=== PATIENT | male | born 1930 | race Caucasian/White ===

== ENCOUNTER 2018-12-25 07:10 | Day surgery (SDC) | payer MEDICARE, BC ==
[2018-12-24 09:06] VITALS: BMI 18.2
[2018-12-25 07:28] LABS: #Eosinphils 0.4 thou/uL (0.0-0.7); #Lymphocytes 1.5 thou/uL (1.20-3.40); #Monocytes 0.6 thou/uL (0.11-0.59); #Neutrophils 5.5 thou/uL (1.40-6.50); %Basophils 0.5 % (0.0-1.0); %Eosinophils 5.2 % (0.0-10.0); %Neutrophils 68.3 % (42.0-75.0); Hemoglobin 11.7 g/dL (14.0-18.0); Mean Corpuscular HGB CONC 32.5 g/dL (32.0-36.0); Mean Platelet Volume 7.2 fL (7.4-10.4); Platelet Count 147 thou/uL (130-400); RBC Distribution Width 16.6 % (11.5-14.5); Red Blood Cell (RBC) Count 3.54 mill/uL (4.70-6.10)
[2018-12-25 07:35] LABS: INR-International Normal Ratio 1.2; PTT 32.6 SEC (22.9-36.1); Prothrombin Time 15.1 SEC (12.0-14.7)
[2018-12-25] MEDS ORDERED: Lidocaine 1% PF 5 ML VIAL ONE (09:09)
[2018-12-25] MEDS ORDERED: Sodium Bicarbonate 2.5 MEQ/5 ML VIAL ONE (09:09)
[2018-12-25] MEDS ORDERED: Midazolam HCl 2 mg/2 ml Vial ONE (09:10)
[2018-12-25] MEDS ORDERED: Fentanyl 100 MCG/2 ML VIAL ONE (09:10)
--- NOTE | 2018-12-25 13:41 | CT ---
CT-guided suprapubic catheter placement HISTORY: Urinary retention. FINDINGS: After explaining the procedure and answering all questions, approximately 550 cc sterile sa line was instilled into the urinary bladder via the indwelling Dent catheter. Sterile technique, buffered local anesthesia, CT guidance, and an anterior midline suprapubic approac h were used to carefully advance, via trocar technique, a 14 [place] urinary catheter. Retention balloon was inflated. Approximately 500 cc saline and urine were drained. Catheter was secured crematory operator ally with 0 silk suture and left draining to gravity. Patient tolerated the procedure well and was eventually dismissed in good condition. IMPRESSION: Technically successful suprapubic catheter placement.
== END 2018-12-25 11:10 | disposition home or self-care (01) ==
LOC: RAD 07:10
PROVIDERS: ATTEND Urology
DX: N40.0 Benign prostatic hyperplasia without lower urinary tract symptoms (principal); R33.8 Other retention of urine; F41.9 Anxiety disorder, unspecified; F32.9 Major depressive disorder, single episode, unspecified; D64.9 Anemia, unspecified; J45.909 Unspecified asthma, uncomplicated; E78.5 Hyperlipidemia, unspecified; K59.00 Constipation, unspecified; Z88.2 Allergy status to sulfonamides; Z88.8 Allergy status to other drugs, medicaments and biological substances; Z87.891 Personal history of nicotine dependence
CPT/HCPCS: 36415; 51102; 77002; 85025; 85610; 85730; J2001; J2250; J3010

== ENCOUNTER 2019-02-16 11:25 | Observation (INO) | payer MEDICARE, BC ==
[2019-02-16] MEDS ORDERED: ISOVUE-370 76%-LOCM 1 ML ONE (12:02)
--- NOTE | 2019-02-16 12:31 | RAD ---
Portable chest: HISTORY: Mental status change COMPARISON: none FINDINGS: Lung syed are clear. Heart and mediastinum appear unremarkable. Vascularity is normal. Visualized osseous structures unremarkable. IMPRESSION: No acute finding
--- NOTE | 2019-02-16 12:39 | CT ---
CT HEAD WITHOUT CONTRAST: Date: 02/16/19 Axial tomograms obtained without enhancement. INDICATION: Mental status change. FINDINGS: Mild cortical volume loss. Mild chronic ischemic white matter change. No evidence of mass, hemorrhage , or acute infarct. Sinuses are clear. IMPRESSION: No acute process. POS: JOSE
[2019-02-16 12:48] LABS: #Basophils 0.1 thou/uL (0.0-0.2); #Eosinphils 0.5 thou/uL (0.0-0.7); #Lymphocytes 2.1 thou/uL (1.20-3.40); #Monocytes 0.7 thou/uL (0.11-0.59); #Neutrophils 5.5 thou/uL (1.40-6.50); %Basophils 0.7 % (0.0-1.0); %Eosinophils 6.1 % (0.0-10.0); %Lymphocytes 23.9 % (21.0-51.0); %Monocytes 7.8 % (0.0-10.0); %Neutrophils 61.5 % (42.0-75.0); Hemoglobin 11.7 g/dL (14.0-18.0); Mean Corpuscular HGB CONC 32.5 g/dL (32.0-36.0); Mean Corpuscular Hemoglobin 32.4 pg (27.0-31.0); Mean Corpuscular Volume 99.9 fL (78.0-98.0); Mean Platelet Volume 7.4 fL (7.4-10.4); Platelet Count 144 thou/uL (130-400); RBC Distribution Width 16.9 % (11.5-14.5); Red Blood Cell (RBC) Count 3.59 mill/uL (4.70-6.10); White Blood Cell (WBC) Count 8.9 thou/uL (4.8-10.8)
[2019-02-16 13:02] LABS: Bilirubin Negative (Negative); Blood, Urine Negative (Negative); Glucose, Urine (Dipstick) Negative (Negative); Leukocyte Negative (Negative); Nitrite Negative (Negative); Protein, Urine (Dipstick) Negative (Neg-Trace); Urobilinogen 0.2 mg/dL (Less than 2)
[2019-02-16 13:05] LABS: ALT (SGPT) 16 U/L (8-55); AST (SGOT) 15 U/L (5-34); Albumin 3.5 g/dL (3.4-4.8); Alkaline Phosphatase 88 U/L (40-150); Anion Gap 11 mmol/L (10-20); BUN (Urea Nitrogen) 29 mg/dL (8.4-25.7); Bilirubin, Total 0.4 mg/dL (0.2-1.2); CK (CPK) 14 U/L (30-200); Calc. Creatinine Clearance 0 mL/min (70-130); Calcium 9.5 mg/dL (7.8-10.44); Carbon Dioxide 24 mmol/L (23-31); Chloride 111 mmol/L (98-107); Estimated GFR-MDRD 45; Globulin 2.5 g/dL (2.4-3.5); Glucose 87 mg/dL (83-110); Potassium 4.7 mmol/L (3.5-5.1); Sodium 141 mmol/L (136-145)
[2019-02-16 13:07] LABS: Clarity Clear (Clear); RBC/HPF 0-3 HPF (0-3); WBC/HPF 0-3 HPF (0-3)
--- NOTE | 2019-02-16 14:29 | CT ---
CTA of the chest and abdomen utilizing an aortic dissection protocol and 3-D reformatted imaging INDICATION: Back pain and known abdominal aortic aneurysm COMPARISON: None FINDINGS: Aorta: There is an infrarenal abdominal aortic aneurysm measuring 5.4 x 5.1 cm in its greatest mediol ateral and AP dimensions respectively. The aneurysm extends for approximately 9.3 cm to the level of the aortic bifurcation. The aneurysm originates 3.7 cm from the level of the lowest renal artery. There are bilateral renal artery stents. Celiac and SMA are patent. The RAYO originates from the infrarenal abdominal aortic aneurysmal sac and is occluded from its origin. There is reconstitution a t the mid level of the RAYO from collaterals. 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 There is ectasia of the right common iliac artery measuring 1.2 cm. Central pulmonary artery: No central pulmonary embolus demonstrated. Additional thorax findings: No focal consolidation, pleural effusion or pneumothorax is evident. Additional abdominal findings: No free fluid or enlarged lymph nodes are evident. The liver, pancreas , adrenal glands, spleen and kidneys appear within normal limits. The unopacified large and small bowel appear unremarkable. Osseous structures: There is scattered degenerative and osteoarthritic change present. There are slip box changer noa appearing compression abnormalities involving L2 and T11. IMPRESSION: 1. Infrarenal abdominal aortic aneurysm as above.
[2019-02-16] MEDS ORDERED: Acetaminophen 650 MG Suppository PR PRN (16:19)
[2019-02-16] MEDS ORDERED: Acetaminophen 325 MG TAB PO PRN (16:19)
[2019-02-16] MEDS ORDERED: Ondansetron ODT 4 MG TAB PO PRN (16:21)
[2019-02-16] MEDS ORDERED: Ondansetron PF 4 MG/2 ML Vial IVP PRN (16:21)
[2019-02-16 16:32] LABS: Troponin I 0.015 ng/mL (< 0.028)
--- NOTE | 2019-02-16 17:19 | HP ---
PRIMARY CARE PHYSICIAN: Dr. Andrews Church. CHIEF COMPLAINT: Weakness and right-sided facial droop. HISTORY OF PRESENT ILLNESS: Mr. Isabel is an 88-year-old man with a known history of CVAs, who had his last stroke approximately 8 years ago. The patient has been in his usual state of health until last week when he began to experience weakness. Today, he had 2 episodes in which he suddenly slumped to one side of his chair. First, the left side noted to have a left facial droop and then later in the day slumped to the right side with a right-sided facial droop. The patient was therefore brought in by his daughters for CVA/TIA rule out. He has had no complaints of pain. No fevers or chills. No chest pain or shortness of breath. The patient is known to have a history of abdominal aortic aneurysm, therefore underwent a CT dissection, which demonstrated the infrarenal abdominal aortic aneurysm measuring 5.4 x 5.1 cm extending 9.3 cm to the level of the aortic bifurcation. The aneurysm originates 3.7 cm from the level of the lowest renal artery. The patient also noted to have bilateral renal artery stents. The last time he underwent CT imaging to assess the size of the abdominal aortic aneurysm was at [facility] in [place], [place]. Family unsure what size it was at that time, but they were told it was below the threshold for surgical intervention. The patient's lifestyle coordinator is Dr. Lay. He was previously on statin, but taken off it due to improved lipids and no longer requiring it. He is not on a baby aspirin at home, but is on Plavix. The patient does not ambulate, but is able to sit up in a wheelchair and is communicative. He has had a good appetite in recent days. No decreased fluid intake. No changes with his stools such as diarrhea or constipation. No hematuria noted. The patient has a suprapubic catheter in place and there has been no evidence of infection or drainage from the insertion site. REVIEW OF SYSTEMS: All other review of systems are negative. PAST MEDICAL HISTORY: 1. History of CVA, last one 8 years ago. 2. Infrarenal abdominal aortic aneurysm. 3. COPD. 4. Enlarged prostate. PAST SURGICAL HISTORY: 1. Stents placed to both kidneys. 2. Hemorrhoid surgery. 3. Suprapubic catheter placement. SOCIAL HISTORY: The patient lives with his family. He is wheelchair bound. Former smoker, but quit more than 10 years ago. Denies any alcohol use or illicit drug use. PHYSICAL EXAMINATION: GENERAL: The patient appears well developed and in no acute distress. He appears frail. VITAL SIGNS: Temperature 97.5, pulse 74, respirations 16, O2 saturation 100% on room air, and blood pressure 155/78. HEENT: Normocephalic and atraumatic. Pupils are equal, round, and reactive to light. Extraocular movements intact. No nystagmus present. Oropharynx is clear. NECK: Supple. LUNGS: Clear to auscultation. CARDIAC: Regular rate and rhythm. ABDOMEN: Soft, nontender, and nondistended. Normoactive bowel sounds present. No guarding or rigidity. Suprapubic catheter in place without any erythema, discharge, or bleeding at insertion site. Dressing is dry and in place. EXTREMITIES: No lower leg swelling or edema. NEUROLOGIC: Alert and oriented x3. Speech, normal. Able to follow commands and answer questions. Facial movements normal. Sensation normal. No neuro deficits on exam. Unable to assess his gait as he is not ambulatory. LABORATORY DATA: White blood count 8.9, hemoglobin 11.7, hematocrit 35.9, and platelets 144. Sodium 141, potassium 4.7, BUN 29, creatinine 1.48, GFR 45, glucose 87, calcium 9.5, total bilirubin 0.4, AST 15, ALT 16, troponin negative, CK 14, and albumin 3.5. Urinalysis unremarkable. IMAGING DATA: 1. CT of the brain, no acute changes. Mild cortical volume loss and mild chronic ischemic white matter change. Sinuses clear. 2. Chest x-ray, no acute findings. 3. CT dissection as above showed an infrarenal abdominal aortic aneurysm. IMPRESSION AND PLAN: Mr. Isabel is an 88-year-old man, who is being referred for management of the following; 1. Rule out transient ischemic attack/cerebrovascular accident. The patient with 2 episodes of slumping to each side with apparent facial droop. Photos shown by his family, which showed an obvious right facial droop. He has undergone a CT of the head that is unremarkable. We will pick an MRI of the brain, echo, and carotid Dopplers. We will add a lipid panel with morning labs. The patient on Plavix at home and taken off statin previously, not due to reaction, but because he was told he no longer needed it. We will start him back on statin and continue his normal dose of Plavix. Consult placed to Neurology. 2. Abdominal aortic aneurysm. CT imaging shows measurements of 5.4 x 5.1 cm extending approximately 9.3 cm. Obtain outside records to compare for worsening and see if further consultation needed to Cardiovascular Surgery. 3. Acute kidney injury. Unclear if the patient has acute on chronic renal insufficiency, as we do not have previous renal function tests to compare to. We will give gentle hydration as this could be a potential cause for his weakness. 4. Gastrointestinal prophylaxis. 5. Deep venous thrombosis prophylaxis with mechanical sequential compression devices. 6. Code status, DNAR. His surrogate decision maker is his daughter, Meagan Castillo, who is his medical power of warhead maintenance specialist. 7. The patient's case will be discussed with attending for further recommendations. Job ID: [id number]
--- NOTE | 2019-02-16 20:13 | ULT ---
BILATERAL CAROTID DUPLEX ULTRASOUND: HISTORY: TIA, CVA TECHNIQUE: Grayscale, color-flow and spectral Doppler ultrasound imaging of the extracranial carotid artery syst ems was performed bilaterally. FINDINGS: Moderate plaque formation. The peak systolic velocity in the right ICA measures 125 cm/s. The peak systolic velocity in the left ICA measures 92 cm/s. Vertebral flow: antegrade, bilaterally. 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 No hemodynamically significant stenosis of left ICA.
[2019-02-16 20:41] LABS: Troponin I Less than 0.010 ng/mL (< 0.028)
[2019-02-16] MEDS ORDERED: Atorvastatin Calcium 40 MG TAB PO SCH (21:00)
[2019-02-16] MEDS: Sodium Chloride 0.9% 1,000 ML IV SCH (21:08)
[2019-02-16 21:16] VITALS: BMI 18.1
[2019-02-17] MEDS ORDERED: Lorazepam 0.5 MG TAB PO PRN (03:21)
[2019-02-17] MEDS: hydrALAZINE 20 MG/ML VIAL SLOW IVP PRN ×2 (04:41→08:50)
[2019-02-17 05:13] LABS: Anion Gap 5 mmol/L (10-20); BUN (Urea Nitrogen) 24 mg/dL (8.4-25.7); Calc. Creatinine Clearance 51 mL/min (70-130); Calcium 9.1 mg/dL (7.8-10.44); Carbon Dioxide 24 mmol/L (23-31); Cardiac Risk 6.7 (Less than 4.5); Chloride 113 mmol/L (98-107); Cholesterol 160 mg/dl (< 200 Desired); Estimated GFR-MDRD 58; Glucose 90 mg/dL (83-110); HDL Cholesterol 24 mg/dL (>60 Neg Risk); LDL Cholesterol, Calculated 116 mg/dL; Potassium 4.3 mmol/L (3.5-5.1); Sodium 138 mmol/L (136-145); Triglycerides 100 mg/dL (Less than 150)
[2019-02-17 05:29] LABS: #Eosinphils 0.6 thou/uL (0.0-0.7); #Lymphocytes 2.1 thou/uL (1.20-3.40); #Monocytes 0.6 thou/uL (0.11-0.59); #Neutrophils 3.1 thou/uL (1.40-6.50); %Basophils 0.3 % (0.0-1.0); %Eosinophils 8.8 % (0.0-10.0); %Lymphocytes 33.5 % (21.0-51.0); %Monocytes 8.6 % (0.0-10.0); %Neutrophils 48.7 % (42.0-75.0); Hemoglobin 10.5 g/dL (14.0-18.0); Mean Corpuscular Hemoglobin 31.7 pg (27.0-31.0); Mean Corpuscular Volume 99.2 fL (78.0-98.0); Mean Platelet Volume 6.8 fL (7.4-10.4); Platelet Count 115 thou/uL (130-400); Platelet Morphology Comment Appears Decreased; RBC Distribution Width 16.8 % (11.5-14.5); Red Blood Cell (RBC) Count 3.31 mill/uL (4.70-6.10); White Blood Cell (WBC) Count 6.4 thou/uL (4.8-10.8)
[2019-02-17] MEDS: Clopidogrel Bisulfate 75 MG TAB PO SCH (08:38)
[2019-02-17] MEDS ORDERED: Aspirin 81 mg Enteric Coated Tablet PO SCH (09:00)
--- NOTE | 2019-02-17 09:47 | MRI ---
Brain MRI without contrast: 02/17/2019 COMPARISON: None HISTORY: Altered mental status, transient ischemic attack TECHNIQUE: Multiplanar multisequence MR imaging of the brain obtained without contrast FINDINGS: The diffusion weighted imaging demonstrates no evidence for acute infarction. The axial gra dient echo imaging demonstrates no evidence for intracranial hemorrhage. The imaged paranasal sinuses and mastoid air cells are well aerated. There is prominent diffuse cereb ral volume loss. There is extensive periventricular, deep, and subcortical white matter T2 and FLAIR hyperintensity, c onsistent with small vessel disease. Similar patchy increased signal intensity noted within the crispin. Regional bone marrow signal intensity appears within normal limits. IMPRESSION: Cerebral volume loss and prominent small vessel disease with no evidence for acute infarc tion or intracranial hemorrhage.
--- NOTE | 2019-02-17 12:40 | PDOC.PN ---
- Subjective Encounter Start Date: 02/17/19 Encounter Start Time: 10:00 Subjective: Patient examined, just back from MRI -: Is having trouble getting his thoughts verbalized -: [facility] - Objective Resuscitation Status - Order Detail: 02/16/19 16:19 Resuscitation Status Routine Co-Sign Provider: Resuscitation Status: DNAR: NO Resuscitation Discussed with: Patient and family, known DNAR Vital Signs & Weight: Vital Signs (12 hours) Temp Pulse Resp BP BP BP Pulse Ox 02/17/19 12:00 97.3 F L 96 18 147/90 H 98 02/17/19 10:00 84 140/67 02/17/19 08:50 85 187/87 H 02/17/19 07:57 98 F 85 18 187/87 H 97 02/17/19 05:19 76 193/88 H 02/17/19 04:41 75 02/17/19 04:31 75 199/91 H 02/17/19 03:58 98.5 F 76 16 185/86 H 96 Weight Weight 81.647 kg I&O: 02/16/19 02/17/19 02/18/19 06:59 06:59 06:59 Intake Total 50 Output Total 910 Balance -860 Result Diagrams: 02/18/19 04:47 02/18/19 04:47 Phys Exam - Physical Examination HEENT: PERRLA, moist MMs Neck: no nodes Respiratory: clear to auscultation bilateral Cardiovascular: RRR Gastrointestinal: soft, non-tender Musculoskeletal: no edema, pulses present Lymphatic: no nodes Psychiatric: A&O x 3 Skin: no rash, normal turgor Dx/Plan (1) Weakness due to old stroke Code(s): I69.998 - OTHER SEQUELAE FOLLOWING UNSPECIFIED CEREBROVASCULAR DISEASE ; R53.1 - WEAKNESS Status: Acute (2) NATHALIA (acute kidney injury) Code(s): N17.9 - ACUTE KIDNEY FAILURE, UNSPECIFIED Status: Acute (3) CAD (coronary artery disease) Code(s): I25.10 - ATHSCL HEART DISEASE OF [place] CORONARY ARTERY W/O ANG PCTRS Status: Chronic (4) AAA (abdominal aortic aneurysm) Code(s): I71.4 - ABDOMINAL AORTIC ANEURYSM, WITHOUT RUPTURE Status: Chronic (5) Enlarged prostate Code(s): N40.0 - BENIGN PROSTATIC HYPERPLASIA WITHOUT LOWER URINRY TRACT SYMP Status: Chronic - Plan Fluids, MRI is negative, CTA and Echo are pending -: Dr. Rocha has been consulted -: Family requesting O2 and hospital bed for home -: PT/OT eval pending, Dietary recommends Ensure * Patient is bed bound and requires assistance for care. He has a caregiver to assist with ADL's at home. A hospital bed is requested to help with turning , bathing, brief changes, passive exercises. Patient is weak from prolonged hospitalizations in the last year. He was in an inpatient rehab for approximately 1 month and made some improvement while there per family. PT evaluated and was able to do some exercises while the patient was in bed.
[2019-02-17] MEDS ORDERED: Iopamidol 370 76% 100 ML VIAL ONE (13:38)
--- NOTE | 2019-02-17 15:40 | CT ---
CT angiogram head: 02/17/2019 HISTORY: Transient ischemic attack TECHNIQUE: Axial CT imaging at 5 mm intervals from vertex through skull base without contrast. Axial CT imaging then obtained from vertex through skull base with IV contrast using a CT angiogram protocol. Coronal and sagittal 3-D reformatted imaging obtained. FINDINGS: Noncontrast head CT demonstrates moderate diffuse cerebral volume loss and extensive perive ntricular, deep, and subcortical white matter hypodensity, evidence of small vessel disease. No intracranial hemorrhage, midline shift, or mass effect. The visualized paranasal sinuses and mastoid air cells are well aerated. There is no displaced calvar ial fracture. The imaged distal vertebral arteries appear grossly unremarkable. The basilar artery and its branches appear grossly unremarkable. There is mild stenosis involving the P2 segment on the left, best seen on axial image 56. No high-grade stenosis, vascular occlusion, or saccular aneurysm is seen involving the posterior circulation. The imaged extracranial ICA appears within normal limits bilaterally. There is atherosclerotic calcif ication involving the cavernous carotid arteries bilaterally. The A1 segment is patent bilaterally. Distal DB branches appear within normal limits. The M1 segment is patent bilaterally. The MCA bifurcation appears grossly unremarkable as do distal M CA branches. No saccular aneurysm, high-grade stenosis, or vascular occlusion is seen involving the posterior circulation. IMPRESSION: No high-grade stenosis vascular occlusion or saccular aneurysm noted.
[2019-02-17] MEDS ORDERED: Lorazepam 1 MG TAB PO PRN (15:51)
--- NOTE | 2019-02-17 16:39 | CT ---
CTA NECK UTILIZING IV CONTRAST AND 3D REFORMATTED IMAGING: INDICATIONS: Concern for carotid stenosis and CVA. FINDINGS: There is approximately 30% luminal caliber narrowing involving the proximal right internal carotid ar kinza. There is moderate atherosclerotic plaque involving the right carotid bulb and the proximal rig ht internal carotid artery. No hemodynamically significant stenosis is seen involving the left internal carotid artery. There is moderate narrowing involving the origin of the proximal aspect of the right vertebral artery . The left vertebral artery is widely patent. Dental amalgam limits evaluation of the oral cavity. The visualized aerodigestive tract is unremarka ble. No lymphadenopathy is evident. The parotid, submandibular, and thyroid glands are normal appea ring. There is pleural parenchymal scarring involving both lung apices. The great vessel origins ar e widely patent. The subclavian arteries are patent. No acute osseous abnormality is evident. IMPRESSION: 1. 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 2. Moderate narrowing involving the origin and proximal aspect of the right vertebral artery, off th e right subclavian artery. POS: CET
[2019-02-17] MEDS: Sodium Chloride 0.9% 1,000 ML IV SCH (17:47)
[2019-02-17] MEDS: Nystatin Powder 15 GM BOT TOP SCH (20:50)
[2019-02-17] MEDS ORDERED: Atorvastatin Calcium 20 MG TAB PO SCH (21:00)
[2019-02-18 05:09] LABS: #Eosinphils 0.6 thou/uL (0.0-0.7); #Lymphocytes 2.4 thou/uL (1.20-3.40); #Monocytes 0.6 thou/uL (0.11-0.59); #Neutrophils 3.4 thou/uL (1.40-6.50); %Basophils 0.7 % (0.0-1.0); %Eosinophils 8.9 % (0.0-10.0); %Lymphocytes 33.1 % (21.0-51.0); %Monocytes 8.9 % (0.0-10.0); %Neutrophils 48.4 % (42.0-75.0); Hemoglobin 10.8 g/dL (14.0-18.0); Mean Corpuscular HGB CONC 32.5 g/dL (32.0-36.0); Mean Corpuscular Hemoglobin 32.1 pg (27.0-31.0); Mean Corpuscular Volume 98.6 fL (78.0-98.0); Mean Platelet Volume 7.2 fL (7.4-10.4); Platelet Count 143 thou/uL (130-400); Red Blood Cell (RBC) Count 3.37 mill/uL (4.70-6.10); White Blood Cell (WBC) Count 7.1 thou/uL (4.8-10.8)
[2019-02-18 05:31] LABS: Anion Gap 8 mmol/L (10-20); Calc. Creatinine Clearance 42 mL/min (70-130); Calcium 9.4 mg/dL (7.8-10.44); Carbon Dioxide 23 mmol/L (23-31); Chloride 114 mmol/L (98-107); Estimated GFR-MDRD 61; Glucose 95 mg/dL (83-110); Potassium 4.5 mmol/L (3.5-5.1); Sodium 140 mmol/L (136-145)
[2019-02-18 06:02] LABS: BUN (Urea Nitrogen) 22 mg/dL (8.4-25.7)
[2019-02-18] MEDS ORDERED: Finasteride 5 MG TAB PO SCH (09:00)
[2019-02-18] MEDS ORDERED: Megestrol Acetate 800 MG/20 ML UDCUP PO SCH (09:00)
[2019-02-18] MEDS ORDERED: Loratadine 10 MG TAB PO SCH (09:00)
[2019-02-18] MEDS ORDERED: Citalopram 10 MG TAB PO SCH (09:00)
[2019-02-18] MEDS ORDERED: Aspirin Chewable 81 MG TAB PO SCH (09:00)
[2019-02-18] MEDS: Nystatin Powder 15 GM BOT TOP SCH (09:46)
[2019-02-18] MEDS: Clopidogrel Bisulfate 75 MG TAB PO SCH (09:57)
[2019-02-18 11:47] VITALS: TEMP 98.5
[2019-02-18] MEDS: hydrALAZINE 20 MG/ML VIAL SLOW IVP PRN (12:21)
[2019-02-18] MEDS: Sodium Chloride 0.9% 1,000 ML IV SCH (12:23)
[2019-02-18 12:29] VITALS: BP 181/88
[2019-02-18] MEDS ORDERED: Morphine 4 MG/ML VIAL SLOW IVP SCH (13:45)
--- NOTE | 2019-02-22 13:16 | EKG ---
Test Reason : ER INDICATION Blood Pressure : / mmHG Vent. Rate : 077 BPM Atrial Rate : 077 BPM P-R Int : 148 ms QRS Dur : 082 ms QT Int : 404 ms P-R-T Axes : 064 047 055 degrees QTc Int : 457 ms Normal sinus rhythm Normal ECG Confirmed by FREDDIE GARRETT MD ([id number]), manager editorial CARLOS ALEXANDRA ([id number]) on 02/22/2019 1:16:16 PM Referred By: Confirmed By:FREDDIE GARRETT MD
== END 2019-02-18 15:07 | disposition home health service (06) ==
LOC: ERS 11:25 → 2SE 18:06
PROVIDERS: ADMIT Family Medicine; ATTEND Family Medicine
DX: R29.810 Facial weakness (principal); I71.4 Abdominal aortic aneurysm, without rupture; I65.21 Occlusion and stenosis of right carotid artery; I65.01 Occlusion and stenosis of right vertebral artery; I69.398 Other sequelae of cerebral infarction; R53.1 Weakness; I25.10 Atherosclerotic heart disease of native coronary artery without angina pectoris; N17.9 Acute kidney failure, unspecified; N40.0 Benign prostatic hyperplasia without lower urinary tract symptoms; J44.9 Chronic obstructive pulmonary disease, unspecified; Z66 Do not resuscitate; Z87.891 Personal history of nicotine dependence; Z79.02 Long term (current) use of antithrombotics/antiplatelets; Z79.899 Other long term (current) drug therapy; Z88.2 Allergy status to sulfonamides; Z88.8 Allergy status to other drugs, medicaments and biological substances; Z98.890 Other specified postprocedural states
CPT/HCPCS: 70450; 70496; 70498; 70551; 71045; 71275; 80048 ×2; 80061; 81003; 82550; 84484 ×2; 85025 ×2; 87086; 93005; 93306; 93880; 94760; 96361; 96374; 96375; 96376 ×2; 97110; 97139 ×3; 99285; G0378 ×2; 36415; 80053; 84443; 96360; J0360; J2270; Q9966; Q9967